=== PATIENT | female | born 1965 | race Caucasian/White ===

== ENCOUNTER 2024-01-13 12:51 | Emergency (ER) | payer BC ==
[2024-01-13 13:03] VITALS: TEMP 97.9
[2024-01-13] MEDS ORDERED: Sodium Chloride 0.9% 1000 ML 1,000 ML ONE (13:13)
[2024-01-13] MEDS ORDERED: Hydromorphone 1 mg/ml Injection ONE (13:13)
[2024-01-13] MEDS ORDERED: TORAdol 30 mg Injection ONE (13:13)
[2024-01-13] MEDS ORDERED: BENADRYL 50 MG/ML ONE (13:13)
[2024-01-13] MEDS: TORAdol 30 mg Injection IV ONE (13:20)
[2024-01-13] MEDS: BENADRYL 50 MG/ML IV ONE (13:20)
[2024-01-13] MEDS: Hydromorphone 1 mg/ml Injection IV ONE (13:21)
[2024-01-13] MEDS: Sodium Chloride 0.9% 1000 ML 1,000 ML IV STA (13:21)
[2024-01-13 13:23] LABS: Absolute Neutrophil Ct (ANC) 4.02 x10^3/uL (1.4-6.9); BASOPHIL % 1.7 % (0.0-0.4); Basophil (Absolute #) 0.13 x10^3/uL (0-0.4); Eosinophil % 4.7 % (0.00-5.0); Eosinophil (Absolute #) 0.36 x10^3/uL (0-0.5); Hematocrit 47.3 % (35-47); Hemoglobin 15.2 g/dL (12.0-16.0); IMMATURE GRAN # 0.03 x10^3u/L (0.00-0.03); IMMATURE GRAN % 0.4 % (0.00-0.4); Lymphocyte (Absolute #) 2.22 x10^3/uL (1.0-4.6); Lymphocytes % 29.1 % (24.0-44.0); Mean Cell Volume 91.7 fL (78-100); Mean Corpuscular Hemoglobin 29.5 pg (26-32); Mean Corpuscular Hgb Concent. 32.1 g/dL (32-36); Mean Platelet Volume 8.5 fL (7.5-11.0); Monocyte (Absolute #) 0.86 x10^3/uL (0.0-1.3); Monocytes % 11.3 % (0.0-12.0); Neutrophil % 52.8 % (36.0-66.0); Platelet Count 344 x10^3/uL (150-450); Red Blood Count 5.16 x10^6/uL (4.1-5.4); Red Cell Distribution Width 13.2 % (11.5-14.0); White Blood Count 7.6 x10^3/uL (4.0-10.5)
[2024-01-13 13:37] LABS: ALBUMIN 4.7 g/dL (3.5-5.0); ANION GAP 13.3 MEQ/L (5-15); BILIRUBIN,TOTAL 0.2 mg/dL (0.2-1.3); Calcium 9.4 mg/dL (8.4-10.2); Creatinine 1 0.58 mg/dL (0.52-1.04); EST GLOMERULAR FILTRATION RATE 103.5 ML/MIN; Potassium 3.9 mmol/L (3.5-5.1)
--- NOTE | 2024-01-13 14:31 | ERPHSYRPT ---
- History of Present Illness Time Seen by Provider: 01/13/24 12:57 Source: patient Exam Limitations: no limitations Patient Subjective Stated Complaint: Abdominal pain Triage Nursing Assessment: 58 yr old female pt arrives to ED via POV. Pt is amb ulatory to room 6. Pt presents with complaints of RLQ pain. Pt's abdomen is tender on palpation and when pushing in. pt denies N/V. pt states she has has a little diarrhea. Pt is also having diffculty urinating. pt reports that she feels like she has to urinate but doesn't feel like she is able to completely empty her bladder. Pt denies hx of kindey stones or UTI. Pt is alert, oriented and not in distress. Physician History: Patient is here with lower abdominal pain. Patient was able to ambulate to room without difficulty. Patient feels that her abdomen started hurting earlier today. Having some difficulty urinating, limited diarrhea. No acute distress. No history of kidney stones or UTI. No nausea, vomiting currently. She has not tried anything to make it better or worse.She arrives with her partner who is driving her. Allergies/Adverse Reactions: tetracycline Allergy (Mild, Verified 01/13/24 13:04) Rash levothyroxine Allergy (Unknown, Verified 01/13/24 13:04) Home Medications: Ezetimibe 10 mg [Zetia 10 MG] 10 mg PO DAILY 01/13/24 [History] Levothyroxine Sodium 100 Mcg [Synthroid 100 Mcg] 100 mcg PO DAILY 01/13/24 [History] Losartan Potassium 50 mg PO DAILY 01/13/24 [History] Hx Tetanus, Diphtheria Vaccination/Date Given: No Hx Influenza Vaccination/Date Given: No Hx Pneumococcal Vaccination/Date Given: No Immunizations Up to Date: No Travel Risk - International Travel Have you traveled outside of the country in past 3 weeks: No - Coronavirus Screening Are you exhibiting any of the following symptoms?: No Close contact with a COVID-19 positive Pt in past 14-21 Days: No - Vaccine Status Have you recieved a Covid-19 vaccination: No - Past Medical History Neurological History: No Pertinent History ENT History: No Pertinent History Cardiac History: No Pertinent History Respiratory History: No Pertinent History Endocrine Medical History: Hypothyroidism Musculoskeletal History: Fractures GI Medical History: Hemorrhoids History: No Pertinent History Psycho-Social History: No Pertinent History Female Reproductive Disorders: Other - Past Surgical History Past Surgical History: Yes Neuro Surgical History: No Pertinent History Cardiac: No Pertinent History Respiratory: No Pertinent History Gastrointestinal: Hemorrhoidectomy Genitourinary: No Pertinent History Musculoskeletal: No Pertinent History Female Surgical History: Other Other Surgical History: Ovarian cyst removal surgery - Social History Smoking Status: Current every day smoker Exposure to second hand smoke: Yes Drug Use: none Patient Lives Alone: No - Nursing Vital Signs Nursing Vital Signs: Initial Vital Signs Temperature 97.9 F 01/13/24 13:02 Pulse Rate 84 01/13/24 13:02 Respiratory Rate 20 01/13/24 13:02 Blood Pressure 162/103 01/13/24 13:02 O2 Sat by Pulse Oximetry 95 01/13/24 13:02 Pain Scale Pain Intensity 4 - Physical Exam SpO2 Interpretation: normal SpO2: 97 Comments: 01/13/24 14:30 Review of Systems Constitutional: Negative for fever. HENT: Negative for congestion. Respiratory: Negative for shortness of breath. Cardiovascular: Negative for chest pain. Gastrointestinal: Negative for abdominal pain. Genitourinary: Negative for dysuria. Musculoskeletal: Negative for back pain. Skin: Negative for rash. Neurological: Negative for headaches. Psychiatric/Behavioral: Negative for behavioral problems. All other systems reviewed and are negative. Physical Exam Vitals signs and nursing note reviewed. Constitutional: Appearance: Patient is well-developed. HENT: Head: Normocephalic and atraumatic. Eyes: Conjunctiva/sclera: Conjunctivae normal. Neck: Musculoskeletal: Normal range of motion. Trachea: No tracheal deviation. Cardiovascular: Rate and Rhythm: Normal rate. Pulmonary: Effort: Pulmonary effort is normal. No respiratory distress. Abdominal: Palpations: Abdomen is soft. Lower abdominal tenderness without rebound or guarding Musculoskeletal: General: No deformity. Skin: General: Skin is warm and dry. Neurological/ Psychiatric: Mental Status: Mental status, behavior, interaction with environment is appropriate for patient's age and condition - Course Nursing assessment & vital signs reviewed: Yes EKG Interpreted by Me: Sinus Rhythm (Sinus rhythm, rate of 85, MO interval 165, QTc 428) Ordered Tests: Active Orders 24 hr Category Date Time Status EKG-ER Only STAT Care 01/13/24 13:04 Active IV Insertion STAT Care 01/13/24 13:04 Active NPO (ED) STAT Care 01/13/24 13:04 Active ABDOMEN AND PELVIS W CONTRAST [CT] Stat Exams 01/13/24 14:29 Completed AMYLASE Stat Lab 01/13/24 13:18 Completed CBC W DIFF Stat Lab 01/13/24 13:18 Completed CMP Stat Lab 01/13/24 13:18 Completed CULTURE,URINE Stat Lab 01/13/24 13:05 Received LIPASE Stat Lab 01/13/24 13:18 Completed TROPONIN Q4H Lab 01/13/24 13:18 Completed TROPONIN Q4H Lab 01/13/24 17:15 Ordered TROPONIN Q4H Lab 01/13/24 21:15 Ordered UA W/RFX UR CULTURE Stat Lab 01/13/24 13:05 Completed Medication Summary Discontinued Medications Generic Name Dose Route Start Last Admin Trade Name Freq PRN Reason Stop Dose Admin Diphenhydramine HCl 25 mg 01/13/24 13:04 01/13/24 13:20 Diphenhydramine Hcl 50 Mg/Ml Vial IV 01/13/24 13:05 25 mg STAT ONE Administration Diphenhydramine HCl Confirm 01/13/24 13:13 Diphenhydramine Hcl 50 Mg/Ml Vial Administered 01/13/24 13:14 Dose 50 mg .ROUTE .STK-MED ONE Droperidol 1.25 mg 01/13/24 13:04 01/13/24 13:20 Droperidol 5 Mg/2 Ml Vial IV 01/13/24 13:05 1.25 mg STAT ONE Administration Droperidol Confirm 01/13/24 13:13 Droperidol 5 Mg/2 Ml Vial Administered 01/13/24 13:14 Dose 5 mg .ROUTE .STK-MED ONE Hydromorphone HCl 1 mg 01/13/24 13:04 01/13/24 13:21 Hydromorphone 1 Mg/1ml Inj IV 01/13/24 13:05 1 mg STAT ONE Administration Hydromorphone HCl Confirm 01/13/24 13:13 Hydromorphone 1 Mg/1ml Inj Administered 01/13/24 13:14 Dose 1 mg .ROUTE .STK-MED ONE Sodium Chloride 1,000 mls @ 999 mls/hr 01/13/24 13:04 01/13/24 14:34 Sodium Chloride 0.9% 1000 Ml IV 01/13/24 14:04 Infused .Q1H1M STA Infusion Sodium Chloride Confirm 01/13/24 13:13 Sodium Chloride 0.9% 1000 Ml Administered 01/13/24 13:14 Dose 1,000 mls @ ud .ROUTE .STK-MED ONE Ketorolac Tromethamine 30 mg 01/13/24 13:04 01/13/24 13:20 Ketorolac Tromethamine 30 Mg/Ml Inj IV 01/13/24 13:05 30 mg STAT ONE Administration Ketorolac Tromethamine Confirm 01/13/24 13:13 Ketorolac Tromethamine 30 Mg/Ml Inj Administered 01/13/24 13:14 Dose 30 mg .ROUTE .K-[facility] ONE Lab/Rad Data: Laboratory Result Diagrams 01/13/24 13:18 01/13/24 13:18 Laboratory Results 01/13/24 01/13/24 01/13/24 Range/Units 13:18 13:18 13:18 WBC 7.6 (4.0-10.5) x10^3/uL RBC 5.16 (4.1-5.4) x10^6/uL Hgb 15.2 (12.0-16.0) g/dL Hct 47.3 H (35-47) % MCV 91.7 (78-100) fL MCH 29.5 (26-32) pg MCHC 32.1 (32-36) g/dL RDW 13.2 (11.5-14.0) % Plt Count 344 (150-450) x10^3/uL MPV 8.5 (7.5-11.0) fL Gran % 52.8 (36.0-66.0) % Immature Gran % (Auto) 0.4 (0.00-0.4) % Nucleat RBC Rel Count 0.0 (0.00-0.1) % Eos # (Auto) 0.36 (0-0.5) x10^3/uL Immature Gran # (Auto) 0.03 (0.00-0.03) x10^3u/L Absolute Lymphs (auto) 2.22 (1.0-4.6) x10^3/uL Absolute Monos (auto) 0.86 (0.0-1.3) x10^3/uL Absolute Nucleated RBC 0.00 (0.00-0.01) x10^3u/L Lymphocytes % 29.1 (24.0-44.0) % Monocytes % 11.3 (0.0-12.0) % Eosinophils % 4.7 (0.00-5.0) % Basophils % 1.7 (0.0-0.4) % Absolute Granulocytes 4.02 (1.4-6.9) x10^3/uL Basophils # 0.13 (0-0.4) x10^3/uL Sodium 139 (137-145) mmol/L Potassium 3.9 (3.5-5.1) mmol/L Chloride 103 (98-107) mmol/L Carbon Dioxide 26 (22-30) mmol/L Anion Gap 13.3 (5-15) MEQ/L BUN 21 H (7-17) mg/dL Creatinine 0.58 (0.52-1.04) mg/dL Estimated GFR 103.5 ML/MIN Glucose 119 H (74-106) mg/dL Calcium 9.4 (8.4-10.2) mg/dL Total Bilirubin 0.20 (0.2-1.3) mg/dL AST 33 (14-36) U/L ALT 53 H (0-35) U/L Alkaline Phosphatase 80 (38-126) U/L Troponin I < 0.012 (0.000-0.034) ng/mL Serum Total Protein 8.0 (6.3-8.2) g/dL Albumin 4.7 (3.5-5.0) g/dL Amylase 77 (30-110) U/L Lipase 103 (23-300) U/L Urine Color (Yellow) Urine Appearance (Clear) Urine pH (4.6-8.0) Ur Specific [place] (1.005-1.030) Urine Protein (Negative) Urine Glucose (UA) (Negative) mg/dL Urine Ketones (Negative) Urine Blood (Negative) Urine Nitrite (Negative) Urine Bilirubin (Negative) Urine Urobilinogen (0.2) mg/dL Ur Leukocyte Esterase (Negative) U Hyaline Cast (Auto) (0-2) /LPF Urine Microscopic RBC (0-5) /HPF Urine Microscopic WBC (0-5) /HPF Ur Epithelial Cells (None Seen) /HPF Urine Bacteria (None Seen) /HPF Urine Culture Reflexed (NO) 01/13/24 Range/Units 13:05 WBC (4.0-10.5) x10^3/uL RBC (4.1-5.4) x10^6/uL Hgb (12.0-16.0) g/dL Hct (35-47) % MCV (78-100) fL MCH (26-32) pg MCHC (32-36) g/dL RDW (11.5-14.0) % Plt Count (150-450) x10^3/uL MPV (7.5-11.0) fL Gran % (36.0-66.0) % Immature Gran % (Auto) (0.00-0.4) % Nucleat RBC Rel Count (0.00-0.1) % Eos # (Auto) (0-0.5) x10^3/uL Immature Gran # (Auto) (0.00-0.03) x10^3u/L Absolute Lymphs (auto) (1.0-4.6) x10^3/uL Absolute Monos (auto) (0.0-1.3) x10^3/uL Absolute Nucleated RBC (0.00-0.01) x10^3u/L Lymphocytes % (24.0-44.0) % Monocytes % (0.0-12.0) % Eosinophils % (0.00-5.0) % Basophils % (0.0-0.4) % Absolute Granulocytes (1.4-6.9) x10^3/uL Basophils # (0-0.4) x10^3/uL Sodium (137-145) mmol/L Potassium (3.5-5.1) mmol/L Chloride (98-107) mmol/L Carbon Dioxide (22-30) mmol/L Anion Gap (5-15) MEQ/L BUN (7-17) mg/dL Creatinine (0.52-1.04) mg/dL Estimated GFR ML/MIN Glucose (74-106) mg/dL Calcium (8.4-10.2) mg/dL Total Bilirubin (0.2-1.3) mg/dL AST (14-36) U/L ALT (0-35) U/L Alkaline Phosphatase (38-126) U/L Troponin I (0.000-0.034) ng/mL Serum Total Protein (6.3-8.2) g/dL Albumin (3.5-5.0) g/dL Amylase (30-110) U/L Lipase (23-300) U/L Urine Color Yellow (Yellow) Urine Appearance Clear (Clear) Urine pH 5.0 (4.6-8.0) Ur Specific [place] 1.015 (1.005-1.030) Urine Protein Negative (Negative) Urine Glucose (UA) Negative (Negative) mg/dL Urine Ketones Negative (Negative) Urine Blood Negative (Negative) Urine Nitrite Negative (Negative) Urine Bilirubin Negative (Negative) Urine Urobilinogen 0.2 (0.2) mg/dL Ur Leukocyte Esterase Small A (Negative) U Hyaline Cast (Auto) 3-5 A (0-2) /LPF Urine Microscopic RBC 0-2 (0-5) /HPF Urine Microscopic WBC 11-20 A (0-5) /HPF Ur Epithelial Cells Few (None Seen) /HPF Urine Bacteria None Seen (None Seen) /HPF Urine Culture Reflexed YES (NO) - Progress Progress: improved Progress Note: 01/13/24 14:29 Differential diagnosis includes kidney stone, compression fracture, infection, UTI, triple AAA - basic labs including: CBC, lipase, CMP, UA - insert IV for symptom management - consider imaging: CT ab/pelvis or U/S 01/13/24 16:38 Reevaluation Patient feels improved with medication. Labs demonstrateNo elevation of white blood cell count. Patient's UA does not appear consistent with a UTI. Will send for urine culture either way. Some white blood cells however no bacteria, epithelia.CT scan does show mesenteric radiculitis. This certainly could be the cause of patient's symptoms today. No other obvious symptoms. Patient feels improved with medication here. Patient will need his abdominal reexam in 24 to 40 hours. May return here sooner for any new or changing symptoms Counseled pt/family regarding: lab results, diagnosis, need for follow-up, rad results - Departure Departure Disposition: Home Clinical Impression: Lower abdominal pain, Mesenteric panniculitis Condition: Stable Critical Care Time: No Referrals: SHIRA LIND [Primary Care Provider] - Follow up/PCP as directed Instructions: Abdominal pain Additional Instructions: See PCP for follow up of Mesenteric panniculitis. You will need an abdominal reexam in 24-48 hours
[2024-01-13 14:34] LABS: Appearance Clear (Clear); Bacteria None Seen /HPF (None Seen); Bilirubin Negative (Negative); Blood Negative (Negative); Epithelial Cells Few /HPF (None Seen); Glucose, Urine Negative (Negative); Ketones Negative (Negative); Leukocyte Esterase Small (Negative); Nitrite Negative (Negative); Protein,Urine Dip Negative (Negative); RBC 0-2 /HPF (0-5); Specific Gravity 1.015 (1.005-1.030); Urobilinogen 0.2 mg/dL (0.2)
[2024-01-13 14:36] LABS: ADD URINE CULTURE? YES (NO)
--- NOTE | 2024-01-13 16:25 | XRAY ---
CLINICAL HISTORY: lower abdomen pain TECHNIQUE: CT scan of the abdomen and pelvis was performed with IV contrast. Coronal and sagittal reconstructive images were also obtained. Total DLP: 919.90 COMPARISON: None. FINDINGS: A scan through the lower chest reveals bilateral basal atelectatic changes. Mild hepatomegaly, measuring about 19 cm at the largest craniocaudal span in the right lobe. No focal or diffuse parenchymal abnormality. The portal vein, intrahepatic biliary radicals, and the bile ducts are normal. The gallbladder is distended and shows no definite stones. There is no evidence of wall thickening/ pericholecystic collection. The pancreas and adrenal glands are unremarkable. Average-sized spleen showing few calcific foci representing calcified granulomas. A small spinule noted measuring 7.8 mm The kidneys are normal in size and shape. No other calculi or hydronephrosis. A circumaortic left renal vein is seen. The stomach and the visualized small bowel loops are unremarkable. There is mild left mesenteric fat stranding is seen with multiple small lymph nodes, the largest measuring 0.8 x 0.5 cm. Otherwise, there is no evidence of significant enlargement of the mesenteric or retroperitoneal lymph nodes. No free fluid. Few Sigmoid and descending colon uncomplicated diverticulae are seen. The urinary bladder is partially distended. Reproductive organs are unremarkable. The ascending colon, the transverse colon, the descending colon, and the rectosigmoid colon are unremarkable. An appendix is not visualized. The pelvic vasculature is unremarkable. No evidence of pelvic lymphadenopathy. Spine osteodegenerative changes are seen. IMPRESSION: Mild hepatomegaly. Mild mesenteric panniculitis. Uncomplicated sigmoid and descending colon diverticular disease. Circumaortic left renal vein (normal variant). No acute abdominopelvic abnormality. Electronically Signed by: Murphy Segovia MD. (01/13/2024 16:21:27 EST)
[2024-01-13 16:34] VITALS: O2SAT 97
[2024-01-13 16:38] VITALS: BP 110/58; PULSE 58; RESP 18
== END 2024-01-13 16:44 | disposition home or self-care (01) ==
LOC: ED 12:51
DX: K65.4 Sclerosing mesenteritis (principal); R10.30 Lower abdominal pain, unspecified; Z79.899 Other long term (current) drug therapy; Z28.310 Unvaccinated for COVID-19; Z72.0 Tobacco use
CPT/HCPCS: 36000; 36415; 74177; 80053; 81001; 82150; 83690; 84484; 85025; 87086; 93005; 96360; 96374; 96375; 99284; J1170; J1200; J1885